=== PATIENT | male | born 1980 | race Caucasian/White ===

== ENCOUNTER 2018-05-25 14:01 | Outpatient (CLI) | payer OTHER, SELFPAY ==
[2018-05-25 15:18] LABS: HCT 42.7 % (40.0-50.0); HGB 14.7 g/dL (13.5-17.5); Mean Corp. HGB Concentration 34.4 g/dL (32.0-36.0); Mean Corpuscular Hemoglobin 28.3 pg (27.0-33.0); Mean Corpuscular Volume 82.1 fL (80-95); Mean Platelet Volume 10.5 fL (8.0-11.0); Platelet Count 202 x1000/uL (130-400); RBC Distribution Width 13.8 % (11.8-14.1); White Blood Cell Count 6.19 k/cumm (4.4-10.8)
[2018-05-25 16:27] LABS: ALT 62 U/L (12-78); AST 59 U/L (15-37); Alkaline Phosphatase 115 U/L (46-116); Anion Gap 11.2 mmol/L (3-11); BUN 10 mg/dL (7-18); Bilirubin, Total 0.5 mg/dL (0.2-1.0); CO2 28.8 mmol/L (21.0-32.0); CREATININE 0.88 mg/dL (0.70-1.30); Calcium 8.4 mg/dL (8.5-10.1); Chloride 102 mmol/L (98-107); Cholesterol 184 mg/dL (50-200); Glucose 105 mg/dL (70-100); HDL Cholesterol 29 mg/dL (40-60); LDL CHOLESTEROL 98 mg/dL (<100); Sodium 142 mmol/L (136-145); TSH (W/Ref FT4) 4.28 uIU/mL (0.358-3.74); Total Protein 7.2 g/dL (6.4-8.2); Triglyceride 335 mg/dL (30-150)
[2018-05-25 16:53] LABS: Potassium 2.9 mmol/L (3.5-5.1)
[2018-05-25 17:09] LABS: FREE T4 0.85 ng/dL (0.76-1.46)
== END 2018-05-25 14:21 ==
PROVIDERS: PCP Nurse Practitioner; Visit Provider Nurse Practitioner
DX: R00.0 Tachycardia, unspecified (principal); I47.1 Supraventricular tachycardia; I10 Essential (primary) hypertension; E66.01 Morbid (severe) obesity due to excess calories; Z68.37 Body mass index [BMI] 37.0-37.9, adult
CPT/HCPCS: 36415; 80053; 80061; 83721; 85027; 84439; 84443; 93225

== ENCOUNTER 2018-05-28 11:03 | Outpatient (CLI) | payer OTHER, SELFPAY ==
--- NOTE | 2018-05-29 09:41 | HOLTER_ITS ---
HOLTER MONITOR INTERPRETATION DATE OF DICTATION May 29, 2018 INDICATION Tachycardia. Analysis period 48 hours. Baseline sinus tachycardia. Average heart rate 104 beats per minute. Minimum heart rate 77 beats per minute. Max heart rate 136 beats per minute. Rare isolated ventricular ectopy. No nonsustained VT. Rare isolated Atrial ectopy. No SVT or atrial fibrillation. No significant pauses or chuck arrhythmias. No diary entries. Brittany Lopes M.D. ELIAS/guille T-05/29/2018
== END 2018-05-28 11:23 ==
LOC: RT 11:05
PROVIDERS: PCP Nurse Practitioner; Visit Provider Nurse Practitioner
DX: R00.0 Tachycardia, unspecified (principal); I47.1 Supraventricular tachycardia
CPT/HCPCS: 93226

== ENCOUNTER 2018-06-03 11:57 | Outpatient (CLI) | payer OTHER, SELFPAY ==
[2018-06-03 13:00] LABS: Potassium 3.5 mmol/L (3.5-5.1)
== END 2018-06-03 12:17 ==
LOC: LBO 11:59
PROVIDERS: Nurse Practitioner Adult Health; PCP Nurse Practitioner; Visit Provider Nurse Practitioner
DX: E87.6 Hypokalemia (principal)
CPT/HCPCS: 36415; 84132

== ENCOUNTER → 2018-12-23 12:53 | Outpatient (REF) | payer OTHER, SELFPAY ==
[2018-12-23 20:21] LABS: ALT 62 U/L (12-78); AST 39 U/L (15-37); Albumin 3.9 g/dL (3.4-5.0); Alkaline Phosphatase 128 U/L (46-116); Anion Gap 11.2 mmol/L (3-11); BUN 8 mg/dL (7-18); Bilirubin, Total 0.4 mg/dL (0.2-1.0); CO2 27.8 mmol/L (21.0-32.0); CREATININE 0.83 mg/dL (0.70-1.30); Calcium 8.5 mg/dL (8.5-10.1); Chloride 104 mmol/L (98-107); Cholesterol 186 mg/dL (50-200); Glucose 201 mg/dL (70-100); HDL Cholesterol 24 mg/dL (40-60); Potassium 3.3 mmol/L (3.5-5.1); Sodium 143 mmol/L (136-145); TSH (W/Ref FT4) 4.14 uIU/mL (0.36-3.74); Total Protein 7.3 g/dL (6.4-8.2); Triglyceride 449 mg/dL (30-150)
[2018-12-23 20:49] LABS: LDL CHOLESTEROL 98 mg/dL (<100)
[2018-12-23 21:18] LABS: FREE T4 0.74 ng/dL (0.76-1.46)
== END ==
LOC: LBN 12:53
PROVIDERS: PCP Nurse Practitioner; Visit Provider Nurse Practitioner
DX: I10 Essential (primary) hypertension (principal); R79.9 Abnormal finding of blood chemistry, unspecified; E78.6 Lipoprotein deficiency; E87.6 Hypokalemia
CPT/HCPCS: 80053; 80061; 83721; 83735; 84439; 84443

== ENCOUNTER 2020-07-11 03:20 | Outpatient (CLI) | payer OTHER, SELFPAY ==
[2020-07-11 09:22] LABS: ALT 33 U/L (16-63); AST 17 U/L (15-37); Albumin 3.9 g/dL (3.4-5.0); Alkaline Phosphatase 99 U/L (46-116); Anion Gap 12.3 mmol/L (3-11); BUN 9 mg/dL (7-18); Bilirubin, Total 0.5 mg/dL (0.2-1.0); CO2 24.7 mmol/L (21.0-32.0); CREATININE 0.8 mg/dL (0.70-1.30); Calcium 8.3 mg/dL (8.5-10.1); Calculated LDL 121 mg/dL (<100); Chloride 106 mmol/L (98-107); Cholesterol 195 mg/dL (<200); Glucose 147 mg/dL (74-106); HDL Cholesterol 32 mg/dL (40-60); Sodium 143 mmol/L (136-145); TSH (W/Ref FT4) 5.55 uIU/mL (0.36-3.74); Total Protein 7.1 g/dL (6.4-8.2); Triglyceride 214 mg/dL (<150)
[2020-07-11 09:40] LABS: FREE T4 0.88 ng/dL (0.76-1.46)
== END 2020-07-11 03:21 | disposition home or self-care (01) ==
LOC: LBO 03:20
PROVIDERS: PCP Nurse Practitioner; Visit Provider Nurse Practitioner
DX: I10 Essential (primary) hypertension (principal); E11.9 Type 2 diabetes mellitus without complications; E78.6 Lipoprotein deficiency; E66.9 Obesity, unspecified; R79.89 Other specified abnormal findings of blood chemistry
CPT/HCPCS: 36415; 80053; 80061; 84439; 84443

== ENCOUNTER 2022-01-15 14:50 | Emergency (ER) | payer OTHER, SELFPAY ==
[2022-01-15] VITALS (22 sets, daily range): BP systolic 117–180; BP diastolic 71–109; PULSE 91–177; RESP 16–35; TEMP 36.5; O2SAT 93–100
--- NOTE | 2022-01-15 14:45 | RT.EKG_ITS ---
APPROVED REPORT Exam: Resting ECG Reason for Exam: rapid heart rate Patient Location: E HR:169 bpm ECG Measurements Heart Rate 169 AXIS WA 146 P 64 QRSd 100 QRS -18 QT 286 T 112 QTc 479 Conclusion Sinus tachycardia...rate> 99 Repolarization abnormality, prob rate related...ST dep, T neg, tachycardia
[2022-01-15] MEDS: Adenosine 6 MG/2 ML VIAL (15:25)
[2022-01-15] MEDS: Metoprolol 5 MG/5 ML VIAL ×3 (15:34→15:44)
--- NOTE | 2022-01-15 15:45 | DI.RAD_ITS ---
Exam(s) XR PORTABLE CHEST AP EXAM: XR PORTABLE CHEST AP CLINICAL HISTORY: palpitations TECHNIQUE: COMPARISON: No exams were available for comparison FINDINGS: Portable chest at 1615 hours. Heart is not enlarged. Lungs are predominantly clear with question fo naun infiltrate in the right upper lung field. No pleural effusion on this frontal film. IMPRESSION: Suspect right upper lobe infiltrate. Appropriate follow-up films suggested. RADIATION DOSE DELIVERED: Total DLP
--- NOTE | 2022-01-15 15:49 | ED.GENADUL_ITS ---
Discharge Plan Disposition Patient Disposition: HOME Discharge Details Clinical Impression: History of PSVT (paroxysmal supraventricular tachycardia), Low serum potassium, Pneumonia Primary Care Provider: Margaret Webb ED Provider: Reyes Carvajal Home Meds and New Rx's Prescriptions: New azithromycin [Zithromax Z-Branden] 250 mg tablet 250 mg PO DAILY 4 Days Qty: 4 0RF Rx Instructions: 250 mg for 4 days (days 2-5); amlodipine 5 mg tablet 5 mg PO DAILY Qty: 30 0RF No Action multivitamin [Multi-Day] 1 EACH tablet 1 ea PO potassium chloride 10 mEq capsule, extended release 10 meq PO DAILY Qty: 30 2RF Discharge Instructions Instructions: Pneumonia (ED) Additional Instructions: It is very important that you keep yourself well-hydrated. Please pear picker the antibiotic prescription and use as directed. Please follow your primary care doctor next week. Return if any concerns. If you have a fever is important that you treat with Tylenol 650 mg or 6 hours. Medical Decision Making Patient presents to the emergency room with SVT in 178. He was given adenosine 6 mg without any effect. At that point he was given IV Lopressor 5 mg aliquots with decrease in his tachycardia from 1 80-1 45. 5:30 PM his is in the room. When asking again he has been coughing in front of his he says no but she confirms that he has been coughing and hacking all night for the past week. This makes more sense since he has an infiltrate on the right on his chest x-ray. He will receive IV fluids. If his tachycardia does not resolve with more IV fluids and will give him Cardizem IV. Believe that his pneumonia is what triggered his SVT. His SVT broke I have had further discussion with him and his regarding treatment plan. He will be discharged with instructions to take the antibiotic follow-up with his PCP. He was also instructed on resuming his amlodipine. HPI General Date/Time Provider Initiated Documentation: 01/15/22 14:56 . HPI Narrative: 42-year-old presents to the emergency room for palpitations. He states that approximately 1:30 PM he was sitting at his desk when he felt his heart race. This was not associated with any headaches. No shortness of breath, no chest pain, no pressure, no diaphoresis, no nausea no vomiting. No back pain. He call his PCP and was advised to come to the emergency department. Patient states that since 2019 he has had 2 previous episodes of these these episodes have lasted 20 minutes and resolved at home without intervention. At some point his primary care doctor had ordered a Holter monitor. Nothing was captured during the Holter monitor. Related Data Home Medications Medication Instructions Recorded Confirmed multivitamin (Multi-Day tablet) 1 ea PO 01/22/17 07/12/21 potassium chloride 10 mEq 10 meq PO DAILY #30 caps 07/11/20 01/15/22 capsule,extended release amlodipine 5 mg tablet 5 mg PO DAILY #30 tabs 01/15/22 azithromycin 250 mg tablet 250 mg PO DAILY 4 days #4 tabs 01/15/22 (Zithromax Z-Branden) Previous Rx's Medication Instructions Recorded potassium chloride 10 mEq 10 meq PO DAILY #30 caps 07/11/20 capsule,extended release amlodipine 5 mg tablet 5 mg PO DAILY #30 tabs 01/15/22 azithromycin 250 mg tablet 250 mg PO DAILY 4 days #4 tabs 01/15/22 (Zithromax Z-Branden) Allergies Allergy/AdvReac Type Severity Reaction Status Date / Time Penicillins Allergy Severe SOB/swellin Verified 06/27/21 11:01 g General Stated Complaint: Palpitatns LION: 2 Review of Systems Narrative: Constitutional negative for fever and chills. Negative for malaise and fatigue HEENT negative Cardiovascular see HPI Respiratory no shortness of breath no cough GI no abdominal pain no nausea no vomiting no diarrhea negative Musculoskeletal no myalgias no arthralgias good strength overall Skin no rashes Psychiatry no stress, no depression Hematological not on blood thinners Endocrine no flushing no tremors no weight lost. 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) HTN (hypertension) (Chronic) Chronic tonsillitis (Acute 04/14/17) Tonsil stone (Acute 04/14/17) Surgical History Fx upper rgt arm wisdom teeth Family History Father Diabetes Alcohol abuse Essential hypertension Heart disease Hyperlipidemia Kidney disease Stroke COPD (chronic obstructive pulmonary disease) Glaucoma Grandfather Stroke COPD (chronic obstructive pulmonary disease) Grandmother Neoplasm breast CA Social History (Updated 12/23/18 @ 11:48 by Marisol Anguiano LPN) Smoking/Tobacco Use Status: Never Smoking risk assessment performed?: Yes Alcohol Intake: current Alcohol Intake frequency: 0-2 drinks per day Drug use: Never Substance use type: does not use Household members: spouse and children Number of Children: 3 current occupation: [employer] Pets and animals: Yes Pets and animals: dog(s) and bird(s) Sexually active: Yes Current gender identity: male What is your relationship status?: Panel score (0-1 are the most socially isolated patients): 1 What type of physical activity do you participate in: none Do you feel safe at home: Yes Do you feel safe in your relationship?: Yes Exam Narrative Exam Narrative: Awake alert oriented x3 mildly anxious, cooperative Normocephalic atraumatic Neck no JVD Chest clear to auscultation bilaterally Heart regular rhythm and rate tachycardic. No murmurs Abdomen soft nondistended nontender no murmurs rubs or gallops Back normal inspection no CVAT Skin normal color breast cap refill Neuro 2-12 grossly intact, rest of exam grossly intact Extremities no edema good pulses Psych positive anxiety. Course The patient was initially treated with adenosine for his SVT. 6 mg of adenosine did nothing, had no effect. At that point decision was made to treat him with IV Lopressor. He received 5 mg x 4 with a decrease in his heart rate from 170s to the 140s. He felt better. He was also hydrated with 3 L of IV fluids. His work-up revealed a mild hypokalemia as well as the right pneumonia. He was giving antibiotics for the pneumonia. He had an EKG that confirmed the SVT. After the 3 L of IV fluids, the decision was made to have treated with Cardizem 20 mg IV push. The patient has been on amlodipine for years but has not been compliant for many months. Shortly after the administration of Cardizem his SVT broke and he went into normal sinus rhythm. ( Vital Signs Vital signs: Vital Signs Temperature 36.5 C 01/15/22 14:59 Pulse 170 H 01/15/22 14:59 Respiratory Rate 20 01/15/22 14:59 Blood Pressure 121/71 01/15/22 14:59 Pulse Oximetry 97 01/15/22 14:59 Temperature 36.5 C 01/15/22 14:59 Pulse 170 H 01/15/22 14:59 Respiratory Rate 20 01/15/22 14:59 Respiratory Effort Non-Labored 01/15/22 15:10 Blood Pressure 121/71 01/15/22 14:59 Pulse Oximetry 97 01/15/22 14:59 Critical Care Time Critical Care Time Critical Care Time: Yes Total Critical Care Time: 45 Attestation: Please see ED course for justification of critical care. Briefly patient received Lopressor IV every 3 for control of SVT. He then required further calcium channel shakira for his SVT which broke. He also required significant IV resuscitation. PAWSS Have you Been Recently Intoxicated or Drunk Within the Last 30 days?: No Have you Ever Experienced Previous Episodes of Alcohol Withdrawal?: No Have you ever Experienced Withdrawal Seizures?: No Have you ever Experienced Delirium Tremens(DT)s?: No Have you ever undergone Alcohol Rehabilitation Treatment (i.e, inpt ot outpatient treatment programs)?: No Have you ever Experienced Blackouts?: No Have you ever Combined Alcohol with other Downers within the last 90 days?: No Have you ever Combined Alcohol with any other Substance of Abuse during the last 90 days?: No Positive Blood Alcohol level on Presentation? [PCS.BAL]: No Evidence of Increased Autonomic Activity (i.e. HR>120, tremor, sweating, agitation, nausea)?: No Result: 0
[2022-01-15] MEDS: Metoprolol 50 MG TAB (15:55)
[2022-01-15] MEDS: Normal Saline 1,000 ML 1000 ML IV (15:58)
[2022-01-15] MEDS: Metoprolol 5 MG/5 ML VIAL IVP (15:58)
[2022-01-15 16:04] LABS: Absolute Basophil Count 0.05 10^3/uL (0.0-0.2); Absolute Eosinophil Count 0.24 10^3/uL (0.0-0.7); Absolute Lymphocyte Count 3.39 10^3/uL (1.2-3.4); Absolute Monocyte Count 0.74 10^3/uL (0.1-0.8); Absolute Neutrophil Count 6.01 10^3/uL (1.2-6.7); Basophils % 0.5; Eosinophils % 2.3; HCT 42.8 % (40.0-50.0); HGB 14.6 g/dL (13.5-17.5); Immature Grans % 0.9; Lymphocytes % 32.2; MCH 27.8 pg (27.0-33.0); MCHC 34.1 % (32.0-36.0); MCV 81 fL (80-95); MPV 10.6 fL (8.0-11.0); Neutrophils % 57.1; Platelet Count 265 10^3/uL (130-400); RBC 5.26 10^6/uL (4.36-5.78); RDW 12.7 % (11.8-14.1); RDW-SD 37.6 fL; WBC 10.53 10^3/uL (4.4-10.8)
[2022-01-15] MEDS: LORazepam 20 MG/10 ML VIAL IVP (16:21)
[2022-01-15 16:34] LABS: ALT 37 U/L (16-63); AST 36 U/L (15-37); Albumin 3.6 g/dL (3.4-5.0); Alkaline Phosphatase 95 U/L (46-116); Anion Gap 8.5 mmol/L (3-11); BUN 12 mg/dL (7-18); Bilirubin, Total 0.3 mg/dL (0.2-1.0); CO2 29.5 mmol/L (21.0-32.0); CREATININE 0.8 mg/dL (0.70-1.30); Calcium 8.7 mg/dL (8.5-10.1); Chloride 104 mmol/L (98-107); Glucose 209 mg/dL (74-106); Magnesium 1.9 mg/dL (1.8-2.4); Potassium 3.3 mmol/L (3.5-5.1); Sodium 142 mmol/L (136-145); TSH (W/Ref FT4) 5.33 uIU/mL (0.36-3.74); Total Protein 7.9 g/dL (6.4-8.2); Troponin I < 50 ng/L (<or=60)
[2022-01-15 16:37] LABS: D-Dimer 370 ng/mlFEU (<500)
[2022-01-15 16:56] LABS: FREE T4 0.93 ng/dL (0.76-1.46)
[2022-01-15] MEDS: Potassium Chloride 20 MEQ TABCR 40 MEQ PO (18:00)
[2022-01-15 18:16] LABS: Source Nasal/Nares
[2022-01-15 18:47] LABS: Lactate 1.5 mmol/L (0.6-1.4)
[2022-01-15] MEDS: AZITHROMYCIN 500 MG in Normal Saline 250 ML 250 MG IVPB (18:47)
[2022-01-15] MEDS: dilTIAZem 25 MG/5 ML VIAL 20 MG IVP (18:47)
[2022-01-15 18:51] LABS: COVID-19 PCR Negative (Negative)
== END 2022-01-15 20:19 | disposition home or self-care (01) ==
PROVIDERS: Emergency Provider Emergency Medicine; PCP Nurse Practitioner
DX: I47.1 Supraventricular tachycardia (principal); J18.9 Pneumonia, unspecified organism; E87.6 Hypokalemia; Z20.822 Contact with and (suspected) exposure to COVID-19
CPT/HCPCS: 80053; 87635; 93005; 96361; 96365; 96366; 96375; 96376; 99291; 71045; 83605; 83735; 84439; 84443; 84484; 85025; 85379; 93010; J0153; J0456; J0696; J3490

== ENCOUNTER 2022-05-08 02:49 | Outpatient (CLI) | payer OTHER, SELFPAY ==
[2022-05-08 07:54] LABS: Anion Gap 9.9 mmol/L (3-11); BUN 12 mg/dL (7-18); CO2 28.1 mmol/L (21.0-32.0); CREATININE 0.9 mg/dL (0.70-1.30); Calcium 8.5 mg/dL (8.5-10.1); Calculated LDL 86 mg/dL (<100); Chloride 103 mmol/L (98-107); Cholesterol 164 mg/dL (<200); Estimated GFR 109.36 (mL/min/1.73m2); Glucose 137 mg/dL (74-106); HDL Cholesterol 35 mg/dL (40-60); Sodium 141 mmol/L (136-145); Triglyceride 215 mg/dL (<150)
[2022-05-08 08:02] LABS: Potassium 2.7 mmol/L (3.5-5.1)
[2022-05-09 10:35] LABS: HIV-1/2 Ag & Ab Screen Negative (Negative); Hepatitis C Ab w Rflx HCV PCR Negative (Negative)
== END 2022-05-08 02:50 | disposition home or self-care (01) ==
LOC: LBO 02:49
PROVIDERS: PCP Nurse Practitioner; Visit Provider Nurse Practitioner
DX: Z11.59 Encounter for screening for other viral diseases (principal); E11.9 Type 2 diabetes mellitus without complications; I10 Essential (primary) hypertension
CPT/HCPCS: 36415; 80048; 80061; 86803; 87389

== ENCOUNTER 2022-05-21 03:50 | Outpatient (CLI) | payer OTHER, SELFPAY ==
[2022-05-21 14:06] LABS: Anion Gap 8.7 mmol/L (3-11); BUN 10 mg/dL (7-18); CO2 29.3 mmol/L (21.0-32.0); CREATININE 0.8 mg/dL (0.70-1.30); Calcium 8.8 mg/dL (8.5-10.1); Chloride 106 mmol/L (98-107); Estimated GFR 113.32 (mL/min/1.73m2); Glucose 98 mg/dL (74-106); Sodium 144 mmol/L (136-145)
[2022-05-21 14:17] LABS: Potassium 2.9 mmol/L (3.5-5.1)
== END 2022-05-21 03:51 | disposition home or self-care (01) ==
PROVIDERS: PCP Nurse Practitioner; Visit Provider Nurse Practitioner
DX: E87.6 Hypokalemia (principal); I10 Essential (primary) hypertension
CPT/HCPCS: 36415; 80048

== ENCOUNTER 2022-11-28 03:03 | Outpatient (CLI) | payer OTHER, SELFPAY ==
[2022-11-28 08:17] LABS: Anion Gap 11.4 mmol/L (3-11); BUN 9 mg/dL (7-18); CO2 28.6 mmol/L (21.0-32.0); CREATININE 0.9 mg/dL (0.70-1.30); Calcium 8.6 mg/dL (8.5-10.1); Chloride 105 mmol/L (98-107); Estimated GFR 108.68 (mL/min/1.73m2); Glucose 133 mg/dL (74-106); Sodium 145 mmol/L (136-145)
[2022-11-28 08:27] LABS: Potassium 2.7 mmol/L (3.5-5.1)
== END 2022-11-28 03:04 | disposition home or self-care (01) ==
LOC: LBO 03:04
PROVIDERS: PCP Nurse Practitioner; Visit Provider Nurse Practitioner
DX: E87.6 Hypokalemia (principal); I10 Essential (primary) hypertension; E11.9 Type 2 diabetes mellitus without complications
CPT/HCPCS: 36415; 80048

== ENCOUNTER 2022-12-02 12:30 | Outpatient (REF) | payer OTHER, SELFPAY ==
[2022-12-02 12:00] LABS: POTASSIUM,URINE RANDOM 27 mmol/L; SAMPLE LIPEMIA CHECK 1350 ml
== END 2022-12-02 12:32 | disposition home or self-care (01) ==
LOC: LBN 12:30
PROVIDERS: PCP Nurse Practitioner; Visit Provider Nurse Practitioner Adult Health
DX: E87.6 Hypokalemia (principal)
CPT/HCPCS: 81050; 84133

== ENCOUNTER 2022-12-19 16:19 | Outpatient (REF) | payer OTHER, SELFPAY ==
[2022-12-19 17:23] LABS: Iron 58 ug/dL (65-175)
[2022-12-19 19:48] LABS: Anion Gap 9.9 mmol/L (3-11); BUN 10 mg/dL (7-18); CO2 28.1 mmol/L (21.0-32.0); CREATININE 0.8 mg/dL (0.70-1.30); Calcium 9.3 mg/dL (8.5-10.1); Chloride 105 mmol/L (98-107); Estimated GFR 112.61 (mL/min/1.73m2); Ferritin 76 ng/mL (26-388); Folate 15.2 ng/mL (8.6-20.0); Glucose 106 mg/dL (74-106); Potassium 3.4 mmol/L (3.5-5.1); Sodium 143 mmol/L (136-145); TSH (W/Ref FT4) 3.51 uIU/mL (0.36-3.74); Vitamin B12 291 pg/mL (193-986)
== END 2022-12-19 16:20 | disposition home or self-care (01) ==
LOC: NCHCN 16:19
PROVIDERS: PCP Nurse Practitioner; Visit Provider Nurse Practitioner
DX: E87.6 Hypokalemia (principal); R79.9 Abnormal finding of blood chemistry, unspecified; I10 Essential (primary) hypertension
CPT/HCPCS: 36415; 80048; 82310; 82607; 82728; 82746; 83540; 84443

== ENCOUNTER 2023-01-21 18:54 | Outpatient (REF) | payer OTHER, SELFPAY | END 2023-01-21 18:55 | disposition home or self-care (01) | LOC: LBN 18:54 | PROVIDERS: PCP Nurse Practitioner; Visit Provider Nurse Practitioner Family | DX: L02.211 Cutaneous abscess of abdominal wall | CPT/HCPCS: 87070; 87205 ==

== ENCOUNTER 2023-02-28 14:02 | Outpatient (CLI) | payer OTHER, SELFPAY ==
[2023-02-28 12:48] LABS: Sodium, Urine 122 mmol/L
== END 2023-02-28 14:03 | disposition home or self-care (01) ==
LOC: LBO 14:02
PROVIDERS: PCP Nurse Practitioner; Visit Provider Internal Medicine
DX: I10 Essential (primary) hypertension (principal)
CPT/HCPCS: 36415; 82088; 84244; 84300

== ENCOUNTER 2023-03-03 04:57 | Outpatient (CLI) | payer OTHER, SELFPAY ==
[2023-03-03 08:43] LABS: Anion Gap 12.5 mmol/L (3-11); BUN 13 mg/dL (7-18); CO2 26.5 mmol/L (21.0-32.0); CREATININE 0.8 mg/dL (0.70-1.30); Calcium 8.6 mg/dL (8.5-10.1); Chloride 105 mmol/L (98-107); Estimated GFR 112.61 (mL/min/1.73m2); Glucose 121 mg/dL (74-106); Sodium 144 mmol/L (136-145)
[2023-03-07 13:26] LABS: Renin Activity, Plasma <0.6 ng/mL/h
== END 2023-03-03 04:58 | disposition home or self-care (01) ==
LOC: LBO 04:57
PROVIDERS: Nurse Practitioner Adult Health; PCP Nurse Practitioner; Visit Provider Internal Medicine
DX: E87.6 Hypokalemia (principal); I10 Essential (primary) hypertension
CPT/HCPCS: 36415; 80048; 82088; 84244

== ENCOUNTER 2024-05-31 03:44 | Outpatient (CLI) | payer OTHER, SELFPAY ==
[2024-05-31 08:19] LABS: ALT 19 U/L (16-63); AST 15 U/L (15-37); Albumin 4.1 g/dL (3.4-5.0); Alkaline Phosphatase 125 U/L (46-116); Anion Gap 9.1 mmol/L (3-11); BUN 9 mg/dL (7-18); Bilirubin, Total 0.44 mg/dL (0.2-1.0); CO2 28.9 mmol/L (21.0-32.0); CREATININE 0.9 mg/dL (0.70-1.30); Calcium 8.5 mg/dL (8.5-10.1); Calculated LDL 102 mg/dL (<100); Chloride 108 mmol/L (98-107); Cholesterol 174 mg/dL (<200); Estimated GFR 108.01 (mL/min/1.73m2); Glucose 131 mg/dL (74-106); HDL Cholesterol 36 mg/dL (40-60); Sodium 146 mmol/L (136-145); Total Protein 7.7 g/dL (6.4-8.2); Triglyceride 183 mg/dL (<150)
[2024-05-31 08:26] LABS: Potassium 2.9 mmol/L (3.5-5.1)
== END 2024-05-31 03:45 | disposition home or self-care (01) ==
LOC: LBO 03:44
PROVIDERS: Absent Provider Nurse Practitioner; PCP Nurse Practitioner; Referring Provider Nurse Practitioner; Visit Provider Nurse Practitioner
DX: E78.6 Lipoprotein deficiency (principal); I10 Essential (primary) hypertension; E87.6 Hypokalemia
CPT/HCPCS: 36415; 80053; 80061

== ENCOUNTER 2024-06-04 11:37 | Outpatient (CLI) | payer OTHER, SELFPAY ==
[2024-06-04 11:54] LABS: Anion Gap 6.4 mmol/L (3-11); BUN 10 mg/dL (7-18); CO2 30.6 mmol/L (21.0-32.0); CREATININE 0.8 mg/dL (0.70-1.30); Calcium 9.3 mg/dL (8.5-10.1); Chloride 107 mmol/L (98-107); Estimated GFR 111.92 (mL/min/1.73m2); Glucose 93 mg/dL (74-106); Potassium 3.3 mmol/L (3.5-5.1); Sodium 144 mmol/L (136-145)
== END 2024-06-04 11:38 | disposition home or self-care (01) ==
LOC: LBO 11:37
PROVIDERS: PCP Nurse Practitioner; Visit Provider Nurse Practitioner
DX: E87.6 Hypokalemia (principal)
CPT/HCPCS: 36415; 80048